=== PATIENT | female | born 1940 | race Caucasian/White ===

== ENCOUNTER 2016-09-03 18:47 | Emergency (ER) | payer MEDICARE, OTHER ==
[~2016-09-03] VITALS: Ht 160 cm; Wt 63.6 kg
[~2016-09-03 18:47] MED LIST: ASPIRIN E.C. 8181 MG PO; BIOFLAX1000 MG PO; CALCIUM600 MG PO; CLARITIN 1010 MG/TAB PO; DUO-KAPS1 CAP PO; HCTZ 25MG TAB25 MG PO; HCTZ 25MG25 MG PO; LIQUID CALCIUM1 SG3 PO; LISINOPRIL20 MG PO; MIRTAZAPINE7.5 MG PO; NASONEX0.05 MG/AC NS; NORCO 325 MG-51 TAB PO; PREVIDENT DE; PRINIVIL20 MG PO; REMERON 15M15 MG/TA1 PO; ULTRAM 50MG TAB50 MG PO; VITAMIN C BUFF500 MG PO
[2016-09-03 18:52] VITALS: TEMP 97.4
[2016-09-03] MEDS ORDERED: CALCIUM 600MG+D1 TAB PO (18:59)
[2016-09-03] MEDS ORDERED: [UNRECOGNIZED DRUG - OTHER] NS (18:59)
[2016-09-03 19:17] LABS: BASO % 0.3 % (0.0-2.0); EOS # 0.1 (0.0-0.7); EOS % 1.8 % (0-4.0); GRAN # 3.2 (1.4-6.5); GRAN % 53.8 % (42.2-75.2); HEMATOCRIT 39.3 % (37.0-47.0); HEMOGLOBIN 12.9 g/dl (12.5-16.0); LYMPH # 2.3 (1.2-3.4); LYMPH % 39.1 % (20.0-51.0); MEAN CELL VOLUME 90 fl (80.0-100.0); MEAN CORPUSCULAR HEMOGLOBIN 29 pg (27.0-31.0); MEAN CORPUSCULAR HGB CONC 33 g/dl (33.0-37.0); MEAN PLATELET VOLUME 11.4 fl (7.4-10.4); MONO # 0.3 (0.1-0.6); MONO % 4.8 % (1.7-9.3); PLATELET COUNT 175 K/mm3 (130-400); RED BLOOD COUNT 4.39 M/mm3 (4.10-5.30); REDCELL DISTRIBUTION WIDTH-CV 13.7 % (11.5-14.5)
[2016-09-03 19:21] LABS: INR 0.9 (0.8-3.0); PROTHROMBIN TIME 10.2 SECONDS (9.7-12.8)
[2016-09-03 19:24] LABS: PARTIAL THROMBOPLASTIN TIME 32.8 SECONDS (26.0-37.0)
[2016-09-03 19:27] LABS: ADJUSTED CALCIUM 9.6 mg/dL (8.4-10.2); ALANINE AMINOTRANSFERASE 32 U/L (9-52); ALBUMIN 4.4 gm/dL (3.5-5.0); ALKALINE PHOSPHATASE 74 U/L (50-136); ANION GAP 13 mmol/L (7-16); BILIRUBIN,TOTAL 0.5 mg/dL (0.0-1.0); BLOOD UREA NITROGEN 12 mg/dL (7-17); CALCIUM 9.9 mg/dL (8.4-10.2); CARBON DIOXIDE 28 mmol/L (22-30); CHLORIDE 99 mmol/L (98-107); CREATININE, serum 0.77 mg/dL (0.52-1.25); GLUCOSE 97 mg/dL (74-106); POTASSIUM 3.5 mmol/L (3.4-5.0); SODIUM 140 mmol/L (137-145); TOTAL PROTEIN 7.5 gm/dL (6.4-8.2)
[2016-09-03 19:40] LABS: TROPONIN-I < 0.012 ng/mL (0.000-0.034)
[2016-09-03 21:55] VITALS: BP 158/83; PULSE 66
[2016-09-18] MEDS ORDERED: FLAX OIL1000 MG PO (08:24)
== END 2016-09-03 21:55 | disposition home or self-care (01) ==
LOC: COL.ER 18:47
PROVIDERS: Family Medicine
DX: R07.9 Chest pain, unspecified (principal); I10 Essential (primary) hypertension
CPT/HCPCS: J1885

== ENCOUNTER → 2016-09-21 | Outpatient (CLI) | payer MEDICARE, OTHER ==
[~2016-09-21] VITALS: Ht 160 cm; Wt 64.0 kg
[~2016-09-21] MED LIST changes: +CALCIUM 600MG+D1 TAB PO; +CLARISPRAY9.9 ML NS; +COZAAR100 MG; +FLAX OIL1000 MG PO; +[UNRECOGNIZED DRUG - OTHER] NS
== END ==
LOC: COL.CARD 05:33
DX: R07.89 Other chest pain (principal); M79.602 Pain in left arm; R06.02 Shortness of breath; R42 Dizziness and giddiness; R94.39 Abnormal result of other cardiovascular function study
CPT/HCPCS: A9502

== ENCOUNTER 2016-10-11 09:30 | Day surgery (SDC) | payer MEDICARE, OTHER ==
[~2016-10-11] VITALS: Ht 160 cm; Wt 64.7 kg
[2016-10-11] VITALS (8 sets, daily range): BP systolic 133–174; BP diastolic 73–92; PULSE 69–82; TEMP 97–98.1
[~2016-10-11 09:30] MED LIST changes: -CLARISPRAY9.9 ML NS; -COZAAR100 MG
[2016-10-11] MEDS ORDERED: CLARISPRAY9.9 ML NS (09:49)
[2016-10-11 10:45] LABS: HEMATOCRIT 38.7 % (37.0-47.0); HEMOGLOBIN 12.9 g/dl (12.5-16.0); MEAN CELL VOLUME 89 fl (80.0-100.0); MEAN CORPUSCULAR HEMOGLOBIN 30 pg (27.0-31.0); MEAN CORPUSCULAR HGB CONC 33 g/dl (33.0-37.0); MEAN PLATELET VOLUME 11.7 fl (7.4-10.4); PLATELET COUNT 162 K/mm3 (130-400); RED BLOOD COUNT 4.37 M/mm3 (4.10-5.30); WHITE BLOOD COUNT 4.7 K/mm3 (4.8-10.8)
[2016-10-11 10:49] LABS: PROTHROMBIN TIME 10.9 SECONDS (9.7-12.8)
[2016-10-11 11:29] LABS: CALCIUM 9.5 mg/dL (8.4-10.2); CREATININE, serum 0.79 mg/dL (0.52-1.25); POTASSIUM 3.4 mmol/L (3.4-5.0)
[2016-10-11] MEDS ORDERED: COZAAR100 MG (14:36)
== END 2016-10-11 15:57 | disposition home or self-care (01) ==
LOC: COL.RAD 09:30 → EUO 09:30
PROVIDERS: Internal Medicine Cardiovascular Disease
DX: I25.110 Atherosclerotic heart disease of native coronary artery with unstable angina pectoris (principal); R94.39 Abnormal result of other cardiovascular function study; I10 Essential (primary) hypertension; Z79.82 Long term (current) use of aspirin; Z79.899 Other long term (current) drug therapy
CPT/HCPCS: C1760; J2250; J3010; Q9967

== ENCOUNTER 2019-05-10 20:02 | Observation (INO) | payer MEDICARE, OTHER ==
[~2019-05-10] VITALS: Ht 160 cm; Wt 69.3 kg
[~2019-05-10 20:02] MED LIST changes: +CLARISPRAY9.9 ML NS; +COZAAR100 MG PO
[2019-05-10 20:20] LABS: BASO % 0.3 % (0.0-2.0); EOS # 0.2 (0.0-0.7); EOS % 2.1 % (0-4.0); GRAN # 4.3 (1.4-6.5); GRAN % 58.4 % (42.2-75.2); HEMATOCRIT 39.8 % (37.0-47.0); HEMOGLOBIN 13.2 g/dl (12.5-16.0); LYMPH # 2.4 (1.2-3.4); LYMPH % 33.2 % (20.0-51.0); MEAN CELL VOLUME 91 fl (80.0-100.0); MEAN CORPUSCULAR HEMOGLOBIN 30 pg (27.0-31.0); MEAN CORPUSCULAR HGB CONC 33 g/dl (33.0-37.0); MEAN PLATELET VOLUME 11.9 fl (7.4-10.4); MONO # 0.4 (0.1-0.6); MONO % 5.9 % (1.7-9.3); PLATELET COUNT 177 K/mm3 (130-400); RED BLOOD COUNT 4.36 M/mm3 (4.10-5.30); REDCELL DISTRIBUTION WIDTH-CV 13.8 % (11.5-14.5)
[2019-05-10 20:28] LABS: INR 0.9 (0.8-3.0); PROTHROMBIN TIME 10.5 SECONDS (9.7-12.8)
[2019-05-10 20:30] LABS: ALANINE AMINOTRANSFERASE 8 U/L (9-52); ALBUMIN 4.5 gm/dL (3.5-5.0); ALKALINE PHOSPHATASE 68 U/L (50-136); ANION GAP 11 mmol/L (7-16); AST,SGOT 26 U/L (15-37); BILIRUBIN,TOTAL 0.2 mg/dL (0.0-1.0); BLOOD UREA NITROGEN 10 mg/dL (7-17); CALCIUM 9.6 mg/dL (8.4-10.2); CARBON DIOXIDE 29 mmol/L (22-30); CHLORIDE 101 mmol/L (98-107); CREATININE, serum 0.75 (0.52-1.25); GLUCOSE 83 mg/dL (74-106); POTASSIUM 3.5 mmol/L (3.4-5.0); SODIUM 140 mmol/L (137-145); TOTAL PROTEIN 7.5 gm/dL (6.4-8.2)
[2019-05-10 20:41] LABS: TROPONIN-I < 0.012 ng/mL (0.000-0.035)
[2019-05-10 21:47] LABS: COLLECTION METHOD CLEAN CATCH
[2019-05-10 21:53] LABS: PH 8 (5-8); SQUAMOUS EPITHELIAL None Seen /hpf; URINE APPEARANCE Clear; URINE BACTERIA None Seen /hpf; URINE BILIRUBIN Negative (NEGATIVE); URINE BLOOD Negative (NEGATIVE); URINE COLOR Straw; URINE GLUCOSE Negative (NEGATIVE); URINE KETONE Negative (NEGATIVE); URINE LEUKOCYTE ESTERASE Negative (NEGATIVE); URINE NITRATE Negative (NEGATIVE); URINE PROTEIN(semi-quant) Negative (NEGATIVE); URINE RBC 0-2 /hpf; URINE UROBILINOGEN Negative (NEGATIVE)
--- NOTE | 2019-05-10 22:00 | NUR ---
PT ARRIVED TO FLOOR WITH FAMILY PRESENT. SAL CASTILLO IS AT BEDSIDE DOING ASSESSMENT. PT IS NOT IN ANY PAIN, AND VOICES NO CONCERN. PT IS A&OX4. ANSWERING QUESTIONS WITH NO PROBLEMS. FAMILY CAME WITH THE PT AND EXPLAINED THAT HER SYMPTOMS ARE WORSENING. PT IS CONSIDERED A FALL RISK WITH THE SYNCOPAL EPISODE, YELLOW GOWN AND SOCKS WELL THE FALL RISK BRACELET ARE IN PLACE. WILL CONTINUE TO MONITOR NEUROLOGICAL STATUS. NO OTHER CONCERNS AT THIS TIME.
[2019-05-10 23:01] VITALS: BP 153/60; PULSE 68; TEMP 98.2
[2019-05-11] VITALS (8 sets, daily range): BP systolic 129–155; BP diastolic 50–67; PULSE 68–85; TEMP 97.1–98.5
--- NOTE | 2019-05-11 00:20 | NUR ---
PT LEFT FLOOR VIA WHEELCHAIR TO CT WITH GENEVIEVE FROM RADIOLOGY. SHOULD RETURN IN APPROXIMATELY 20 MINUTES. PT HAS NO QUESTIONS OR CONCERNS.
--- NOTE | 2019-05-11 00:47 | NUR ---
PT BACK TO FLOOR FROM RADIOLOGY AND IN BED. NO CONCERNS AT THIS TIME. CALL LIGHT WITHIN REACH.
[2019-05-11 06:04] LABS: BASO % 0.4 % (0.0-2.0); EOS # 0.1 (0.0-0.7); EOS % 1.9 % (0-4.0); GRAN # 3.2 (1.4-6.5); GRAN % 56.2 % (42.2-75.2); HEMOGLOBIN 11.6 g/dl (12.5-16.0); LYMPH % 34.6 % (20.0-51.0); MEAN CELL VOLUME 92 fl (80.0-100.0); MEAN CORPUSCULAR HEMOGLOBIN 30 pg (27.0-31.0); MEAN CORPUSCULAR HGB CONC 32 g/dl (33.0-37.0); MEAN PLATELET VOLUME 12.4 fl (7.4-10.4); MONO # 0.4 (0.1-0.6); MONO % 6.5 % (1.7-9.3); PLATELET COUNT 149 K/mm3 (130-400); RED BLOOD COUNT 3.92 M/mm3 (4.10-5.30); REDCELL DISTRIBUTION WIDTH-CV 13.9 % (11.5-14.5)
[2019-05-11 06:20] LABS: ALANINE AMINOTRANSFERASE 15 U/L (9-52); ALBUMIN 3.5 gm/dL (3.5-5.0); ALKALINE PHOSPHATASE 51 U/L (50-136); ANION GAP 5 mmol/L (7-16); AST,SGOT 23 U/L (15-37); BILIRUBIN,TOTAL 0.3 mg/dL (0.0-1.0); BLOOD UREA NITROGEN 9 mg/dL (7-17); CALCIUM 8.5 mg/dL (8.4-10.2); CARBON DIOXIDE 30 mmol/L (22-30); CHLORIDE 105 mmol/L (98-107); CHOLESTEROL 184 mg/dL (120-200); CHOLESTEROL RISK RATIO 5.2; CREATININE, serum 0.77 (0.52-1.25); GLUCOSE 87 mg/dL (74-106); HDL CHOLESTEROL 35 mg/dL; LDL CHOLESTEROL 102 mg/dL; POTASSIUM 3.9 mmol/L (3.4-5.0); SODIUM 141 mmol/L (137-145); TRIGLYCERIDE 235 mg/dL
[2019-05-11 06:22] LABS: C-REACTIVE PROTEIN < 0.5 mg/dL (0.0-0.9)
--- NOTE | 2019-05-11 07:38 | NUR ---
Report given to Scarlet. Pt is sleeping. Pt will be having a MRI/MRA today. Neuro checks have not been abnormal. Pt denies any pain or discomfort at this time. No other concerns for her at this moment.
--- NOTE | 2019-05-11 07:45 | NUR ---
Patient is awake, alert and oriented in bed. Speech is clear. Is able to ambulate with a steady gait to the restroom and back. Was taken for MRI testing.
[2019-05-11 11:06] LABS: C-REACTIVE PROTEIN < 0.5 mg/dL (0.0-0.9)
[2019-05-11 11:38] LABS: FERRITIN 32 ng/mL (11-264)
[2019-05-11 13:14] LABS: FOLATE (FOLIC ACID) 17.8 ng/mL (7.0-31.4)
--- NOTE | 2019-05-11 13:45 | NUR ---
Patient lives at home with her (Germán Payne [phone]) in [place], [place] and plans to return home upon recovery if possible. Patient's daughter (Zainab Payne [phone]) is supportive of patient's needs and is a primary contact for the patient. Patient's and daughter recently noticed that the patient was slurring her speech, showing weakness on her right side, and patient was also having frequent headaches the last couple of weeks. 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 Patient has a stair lift at home, her primary care physician is Rocio Allison, her pharmacy is [facility], and she does not have advance directives for healthcare completed or on file at this time. environmental services tech will follow as needed.
--- NOTE | 2019-05-11 18:11 | NUR ---
Patient has had a restful shift. Contacted dietary with her to figure out menu options for her diet restriction/type. No other needs identified. Call light and personal items are within reach.
--- NOTE | 2019-05-11 20:00 | NUR ---
Shift assessment complete. Pt resting in bed, awake, a&o, cooperative c cares. Pt denies pain, dizziness or any other c/o at this time. IV patent. Tele in place. Pt denies needs. Call light in reach, bed alarm on. Will continue to monitor.
[2019-05-12 04:00] VITALS: BP 119/57; PULSE 65; TEMP 98
[2019-05-12 06:08] LABS: BASO % 0.2 % (0.0-2.0); EOS # 0.2 (0.0-0.7); EOS % 3.4 % (0-4.0); GRAN # 2.7 (1.4-6.5); GRAN % 52.7 % (42.2-75.2); HEMOGLOBIN 11.5 g/dl (12.5-16.0); LYMPH # 1.9 (1.2-3.4); LYMPH % 37.8 % (20.0-51.0); MEAN CELL VOLUME 93 fl (80.0-100.0); MEAN CORPUSCULAR HEMOGLOBIN 30 pg (27.0-31.0); MEAN CORPUSCULAR HGB CONC 32 g/dl (33.0-37.0); MEAN PLATELET VOLUME 12.2 fl (7.4-10.4); MONO # 0.3 (0.1-0.6); MONO % 5.7 % (1.7-9.3); PLATELET COUNT 133 K/mm3 (130-400); RED BLOOD COUNT 3.86 M/mm3 (4.10-5.30); REDCELL DISTRIBUTION WIDTH-CV 13.8 % (11.5-14.5)
[2019-05-12 06:18] LABS: ALBUMIN 3.4 gm/dL (3.5-5.0); BILIRUBIN,TOTAL 0.3 mg/dL (0.0-1.0); CALCIUM 8.4 mg/dL (8.4-10.2); CREATININE, serum 0.78 (0.52-1.25); POTASSIUM 3.7 mmol/L (3.4-5.0); TOTAL PROTEIN 5.9 gm/dL (6.4-8.2)
[2019-05-12 06:25] LABS: HEMATOCRIT 35.7 % (37.0-47.0)
[2019-05-12 06:33] LABS: MAGNESIUM 1.9 mg/dL (1.6-2.3)
--- NOTE | 2019-05-12 09:20 | NUR ---
Pt assessment complete. Pt is sitting up in bed upon entry, she is A/O x4. Her breathing is even and unlabored on RA. Pt denies SOB. Pt reports slight HAINES, but states she has this all the time. No dizziness or vision changes. She states she is feeling stronger today. Reports she would like to eat, and does not want to have her biopsy done. Neuro checks WNL. IVF infusing without complications. NO needs at this time. Call light within reach.
[2019-05-12 10:10] VITALS: BP 160/66; PULSE 71; TEMP 97.8
--- NOTE | 2019-05-12 10:41 | NUR ---
Pt has decided she does not want to have biopsy done. Dr. Fox, Dr Briscoe and Mikaela all notified.
[2019-05-12] MEDS ORDERED: LIPITOR 40MG TA40 MG PO (11:39)
[2019-05-12] MEDS ORDERED: PLAVIX 75MG TAB75 MG PO (11:39)
[2019-05-12] MEDS ORDERED: REQUIP0.25 MG PO (12:06)
[2019-05-12] MEDS ORDERED: REQUIP 1MG T1 MG/TAB PO (12:08)
--- NOTE | 2019-05-12 14:59 | NUR ---
Discharge instructions reviewed with patient, all questions answered at this time. IV to RFA dc'd catheter tip intact. Pt wheeled out at this time.
== END 2019-05-12 15:00 | disposition home or self-care (01) ==
LOC: COL.ER 20:02 → MEDICAL 21:26
PROVIDERS: Emergency Medicine; Family Medicine; Nurse Practitioner Family; Psychiatry & Neurology Neurology; ADMIT Student in an Organized Health Care Education/Training Program
DX: I63.9 Cerebral infarction, unspecified (principal); E87.6 Hypokalemia; H54.7 Unspecified visual loss; I10 Essential (primary) hypertension; Z90.89 Acquired absence of other organs; Z98.51 Tubal ligation status; Z88.1 Allergy status to other antibiotic agents; Z88.2 Allergy status to sulfonamides; Z79.899 Other long term (current) drug therapy; Z79.82 Long term (current) use of aspirin
CPT/HCPCS: 99222-AI; 99239; A9585; G0378; J1644; J2405; J7030; Q9967

== ENCOUNTER → 2019-05-20 | Outpatient (CLI) | payer MEDICARE, OTHER ==
[~2019-05-20] MED LIST changes: +LIPITOR 40MG TA40 MG PO; +PLAVIX 75MG TAB75 MG PO; +REQUIP 1MG T1 MG/TAB PO; +REQUIP0.25 MG PO
== END ==
LOC: MC.RAD 09:22
DX: Z12.31 Encounter for screening mammogram for malignant neoplasm of breast (principal); Z98.82 Breast implant status; Z98.890 Other specified postprocedural states

== ENCOUNTER 2019-06-06 15:00 | Outpatient (RCR) | payer MEDICARE, OTHER | END 2019-06-06 15:41 | disposition home or self-care (01) | LOC: MKS.ESL.PT 15:00 | DX: I69.951 Hemiplegia and hemiparesis following unspecified cerebrovascular disease affecting right dominant side (principal) ==

== ENCOUNTER 2019-08-20 09:00 | Outpatient (RCR) | payer MEDICARE, OTHER | END 2019-10-28 | disposition home or self-care (01) | LOC: WSST | DX: R47.02 Dysphasia (principal) ==

== ENCOUNTER 2020-07-14 08:45 | Outpatient (RCR) | payer MEDICARE, OTHER | END 2020-07-26 | disposition home or self-care (01) | LOC: WSST | DX: R47.01 Aphasia (principal); R41.3 Other amnesia; R47.1 Dysarthria and anarthria ==

== ENCOUNTER → 2020-08-13 | Outpatient (CLI) | payer MEDICARE | LOC: COL.VAS 13:56 | DX: I10 Essential (primary) hypertension (principal); I34.0 Nonrheumatic mitral (valve) insufficiency; I25.10 Atherosclerotic heart disease of native coronary artery without angina pectoris; Z86.16 Personal history of COVID-19 ==

== ENCOUNTER 2020-09-08 09:45 | Outpatient (RCR) | payer MEDICARE, OTHER | END 2020-11-09 | disposition home or self-care (01) | LOC: WSST | DX: R47.01 Aphasia (principal); R41.3 Other amnesia; R47.1 Dysarthria and anarthria ==

== ENCOUNTER → 2021-08-26 | Outpatient (CLI) | payer MEDICARE | LOC: MC.RAD 09:41 | DX: N63.10 Unspecified lump in the right breast, unspecified quadrant (principal) ==

== ENCOUNTER 2021-09-25 11:58 | Emergency (ER) | payer MEDICARE ==
[~2021-09-25] VITALS: Ht 160 cm; Wt 71.4 kg
[2021-09-25 12:15] VITALS: BP 179/106; PULSE 87; TEMP 98.3
[2021-09-25 12:34] LABS: BASO % 0.3 % (0.0-2.0); EOS # 0.1 K/mm3 (0.0-0.7); EOS % 1.4 % (0.0-4.0); GRAN # 4.2 K/mm3 (1.4-6.5); HEMATOCRIT 42.5 % (37.0-47.0); HEMOGLOBIN 13.1 g/dl (12.5-16.0); LYMPH % 29.7 % (20.0-51.0); MEAN CELL VOLUME 97 fl (80.0-100.0); MEAN CORPUSCULAR HEMOGLOBIN 30 pg (27-31); MEAN CORPUSCULAR HGB CONC 31 g/dl (33.0-37.0); MEAN PLATELET VOLUME 11.6 fl (7.4-10.4); MONO # 0.4 K/mm3 (0.1-0.6); MONO % 5.3 % (1.7-9.3); PLATELET COUNT 180 K/mm3 (130-400); RED BLOOD COUNT 4.37 M/mm3 (4.10-5.30); REDCELL DISTRIBUTION WIDTH-CV 13.8 % (11.5-14.5)
[2021-09-25 12:47] LABS: COLLECTION METHOD CLEAN CATCH
[2021-09-25 12:49] LABS: ALBUMIN 4.3 gm/dL (3.4-4.8); BILIRUBIN,TOTAL 0.6 mg/dL (0.2-1.2); CALCIUM 9.8 mg/dL (8.4-10.2); CREATININE, serum 0.81 mg/dL (0.57-1.11); POTASSIUM 3.5 mmol/L (3.5-4.5); TOTAL PROTEIN 7.4 gm/dL (6.2-8.1)
[2021-09-25 12:52] LABS: PH 8 (5-8); SQUAMOUS EPITHELIAL None Seen /hpf (0-10); URINE APPEARANCE Clear (CLEAR/HAZY); URINE BACTERIA None Seen /hpf (NONE SEEN); URINE BILIRUBIN Negative (NEGATIVE); URINE BLOOD Negative (NEGATIVE); URINE COLOR Straw (YELLOW); URINE GLUCOSE Negative (NEGATIVE); URINE KETONE Negative (NEGATIVE); URINE LEUKOCYTE ESTERASE Negative (NEGATIVE); URINE NITRATE Negative (NEGATIVE); URINE PROTEIN(semi-quant) Negative (NEGATIVE); URINE RBC 0-2 /hpf (0-2); URINE UROBILINOGEN Negative (NEGATIVE)
[2021-09-25] MEDS ORDERED: COLACE 100100 MG/CAP PO (14:09)
== END 2021-09-25 14:30 | disposition home or self-care (01) ==
LOC: COL.ER 11:58
PROVIDERS: Emergency Medicine
DX: R10.31 Right lower quadrant pain (principal); R11.0 Nausea; Z86.73 Personal history of transient ischemic attack (TIA), and cerebral infarction without residual deficits; Z79.02 Long term (current) use of antithrombotics/antiplatelets
CPT/HCPCS: J2270; J2405; J7030; Q9967

== ENCOUNTER 2022-03-31 16:17 | Emergency (ER) | payer MEDICARE ==
[~2022-03-31] VITALS: Ht 160 cm; Wt 72.7 kg
[~2022-03-31 16:17] MED LIST changes: +COLACE 100100 MG/CAP PO
[2022-03-31 16:53] VITALS: TEMP 98
[2022-03-31 17:28] LABS: BASO % 0.3 % (0.0-2.0); EOS # 0.1 K/mm3 (0.0-0.7); EOS % 1.9 % (0.0-4.0); GRAN # 3.9 K/mm3 (1.4-6.5); GRAN % 61.2 % (42.2-75.2); HEMOGLOBIN 12.5 g/dl (12.5-16.0); LYMPH # 1.9 K/mm3 (1.2-3.4); LYMPH % 29.9 % (20.0-51.0); MEAN CELL VOLUME 88 fl (80.0-100.0); MEAN CORPUSCULAR HEMOGLOBIN 30 pg (27-31); MEAN CORPUSCULAR HGB CONC 34 g/dl (33.0-37.0); MEAN PLATELET VOLUME 11.7 fl (7.4-10.4); MONO # 0.4 K/mm3 (0.1-0.6); MONO % 6.7 % (1.7-9.3); PLATELET COUNT 159 K/mm3 (130-400); RED BLOOD COUNT 4.19 M/mm3 (4.10-5.30); REDCELL DISTRIBUTION WIDTH-CV 13.8 % (11.5-14.5)
[2022-03-31 17:43] LABS: ALBUMIN 4.2 gm/dL (3.4-4.8); BILIRUBIN,TOTAL 0.5 mg/dL (0.2-1.2); CREATININE, serum 0.84 mg/dL (0.57-1.11); POTASSIUM 3.6 mmol/L (3.5-4.5); TOTAL PROTEIN 6.9 gm/dL (6.2-8.1)
[2022-03-31 17:50] LABS: CALCIUM 9.8 mg/dL (8.4-10.2)
[2022-03-31 18:41] LABS: COLLECTION METHOD CLEAN CATCH
[2022-03-31 18:50] LABS: URINE APPEARANCE Clear (CLEAR/HAZY); URINE BLOOD Negative (NEGATIVE); URINE COLOR Yellow (YELLOW); URINE GLUCOSE Negative (NEGATIVE); URINE KETONE Negative (NEGATIVE); URINE NITRATE Negative (NEGATIVE); URINE PROTEIN(semi-quant) Negative (NEGATIVE); URINE UROBILINOGEN 0.2 E.U/dL (0.2-1.0)
[2022-03-31 18:52] LABS: SQUAMOUS EPITHELIAL None Seen /hpf (0-10); URINE BACTERIA None Seen /hpf (NONE SEEN); URINE RBC 0-2 /hpf (0-2)
[2022-03-31 19:18] VITALS: BP 138/72; PULSE 70
== END 2022-03-31 19:21 | disposition home or self-care (01) ==
LOC: COL.ER 16:17
PROVIDERS: Physician Assistant
DX: R53.81 Other malaise (principal); R53.83 Other fatigue; R53.1 Weakness; I10 Essential (primary) hypertension; Z86.73 Personal history of transient ischemic attack (TIA), and cerebral infarction without residual deficits; Z79.01 Long term (current) use of anticoagulants; Z79.82 Long term (current) use of aspirin
CPT/HCPCS: J2405; J7030

== ENCOUNTER → 2022-05-30 | Outpatient (CLI) | payer MEDICARE ==
[~2022-05-30] MED LIST changes: +ANTIVERT 12.512.5 MG PO; +AZO-CRANBERRY450 MG; +MAGNESIUM250 M1 PO; +MASON NATURAL2000 IU PO
== END ==
LOC: COL.VAS 09:30
DX: R55 Syncope and collapse (principal); R42 Dizziness and giddiness; Z86.73 Personal history of transient ischemic attack (TIA), and cerebral infarction without residual deficits

== ENCOUNTER → 2024-06-20 | Outpatient (CLI) | payer MEDICARE ==
[~2024-06-20] MED LIST changes: +Gadoterate 15 ML VIAL IV ONE
== END ==
LOC: COL.RAD 06:59
DX: G31.9 Degenerative disease of nervous system, unspecified (principal)
CPT/HCPCS: A9575